=== PATIENT | male | born 1965 | race Caucasian/White ===

== ENCOUNTER 2019-09-04 12:36 | Emergency (ER) | payer OTHER, SELFPAY ==
--- NOTE | 2019-09-04 12:23 | ECG_ITS ---
APPROVED REPORT Exam: Resting ECG HR:70 bpm ECG Measurements Heart Rate 70 AXES ME 132 P 48 QRSd 70 QRS 72 QT 398 T 61 QTc 429 <Conclusion> Normal sinus rhythm Normal ECG Electronically signed by : Chris Long, 09/06/2019 06:50:38
[2019-09-04 12:37] VITALS: BP 138/83; PULSE 76; RESP 20; TEMP 36.7; O2SAT 98; BMI 33.7
--- NOTE | 2019-09-04 12:43 | XR_ITS ---
PROCEDURE: XR CHEST 2V CLINICAL HISTORY: SYNCOPE Tobacco use COMPARISON: No exams were available for comparison FINDINGS: The cardiomediastinal silhouette and pulmonary vascularity are within normal limits. The lungs are clear without infiltrates, suspicious nodules, or pleural effusions. No acute bony abnormalities. IMPRESSION: No acute findings. Dictated by: Chinedu Burris MD 09/04/2019 15:46 Electronically signed by Chinedu Burris MD in [facility] 09/04/2019 15:46
--- NOTE | 2019-09-04 12:43 | CT_ITS ---
PROCEDURE: CT HEAD/BRAIN WO CON CLINICAL INDICATION: SYNCOPE Syncope COMPARISON: No exams were available for comparison TECHNIQUE: Axial images obtained. All CT scans at the facility use one or more dose reduction, viz: automated exposure control, ma/kV adjustment per patient size (including targeted exams where dose is matched to indication, i.e. head), or iterative reconstruction technique. FINDINGS: No midline shift, mass effect, intracranial hemorrhage, hydrocephalus, or extra-axial fluid collection is evident. There is some soft tissue swelling in the left parietal region of the skull near the vertex. No obvious fracture. The calvarium has an unremarkable appearance. No mastoid effusion. No sinus air-fluid level. IMPRESSION: 1. No acute intracranial findings. 2. Soft tissue swelling in the left parietal area of the vertex which may be related to contusion. Please correlate with clinical parameters Dictated by: Chinedu Burris MD 09/04/2019 13:13 Electronically signed by Chinedu Burris MD in [facility] 09/04/2019 13:13
[2019-09-04 12:45] VITALS: BP 129/77; BP 138/83; BP 146/92; PULSE 70; PULSE 76; PULSE 80
--- NOTE | 2019-09-04 12:48 | [facility].EDGENADL ---
ED Disposition Clinical Impression: Syncope and collapse Disposition: Home, Self-Care Condition on Discharge: Good Instructions: DI for Syncope in Adults (Fainting) Additional Instructions: Home to rest today. Drink plenty of fluids. Return to the emergency room if feeling of faintness or if actual fainting occurs. Return if any new symptoms such as chest pain or shortness of breath. Follow-up with your primary care provider next week, call for appointment. Referrals: Provider,Referral, [Primary Care Provider] - - Critical Care Critical Care Time: No Attestation: On , the high probability of a clinically significant, sudden or life threatening deterioration of the following system(s) required my full and direct attention, intervention and personal management. The time I documented below is in addition to time spent performing reported procedures but includes the following listed in this critical care notation. Medical Decision Making - Antonio Inquiry Pt receiving controlled substance: No Vital Signs: 09/04/19 12:37 09/04/19 12:45 Temperature 98.1 F Temperature Source Oral Pulse Rate [Orthostatic Lying] 76 Pulse Rate [Orthostatic Sitting] 70 Pulse Rate [Orthostatic Standing] 80 Pulse Rate [Right] 76 Respiratory Rate 20 Blood Pressure [Orthostatic Lying Right Arm] 138/83 Blood Pressure [Orthostatic Sitting] 129/77 Blood Pressure [Orthostatic Standing] 146/92 H Blood Pressure [Right Arm] 138/83 Blood Pressure Mean [Right Arm] 101 02 Sat by Pulse Oximetry 98 - Lab Data Lab Results 09/04/19 12:40: WBC 10.9 H, RBC 4.98, Hgb 15.1, Hct 45.9, MCV 92.0, MCH 30.4, MCHC 33.0, RDW 14.5, Plt Count 317, MPV 8.7, Neut % (Auto) 60.5, Lymph % (Auto) 29.7, [place] % (Auto) 4.6, Eos % (Auto) 4.3, Baso % (Auto) 0.9, Neut # (Auto) 6.6, Lymph # (Auto) 3.2, [place] # (Auto) 0.5, Eos # (Auto) 0.5 H, Baso # (Auto) 0.1 09/04/19 12:40: Sodium 136, Potassium 4.0, Chloride 101, Carbon Dioxide 30, Anion Gap 9.0, BUN 15, Creatinine 1.00, Estimated Creat Clear 123, Estimated GFR 78, Est GFR ( Amer) 95, Glucose 112 H, Calcium 9.5, Total Bilirubin 0.6, AST 25, ALT 22, Alkaline Phosphatase 108, Troponin I < 0.01, Total Protein 7.8, Albumin 4.4, Globulin 3.4 H, Albumin/Globulin Ratio 1.3 09/04/19 12:40: Plasma/Serum Alcohol < 10 09/04/19 13:15: Urine Color Yellow, Urine Appearance Clear, Urine pH 6.0, Ur Specific [place] 1.025, Urine Protein Negative, Urine Glucose (UA) Negative, Urine Ketones Negative, Urine Blood Negative, Urine Nitrate Negative, Urine Bilirubin Negative, Urine Urobilinogen 0.2, Ur Leukocyte Esterase Negative, Urine WBC 3-5, Ur Squamous Epith Cells None, Urine Bacteria Trace 09/04/19 13:15: Urine Opiates Screen Negative, Urine Methadone Screen Negative, Ur Barbituates Screen Negative, Ur Phencyclidine Scrn Negative, Ur Amphetamines Screen Negative, U Benzodiazepines Scrn Negative, Urine Cocaine Screen Negative, U Marijuana (THC) Screen Negative Result diagrams: 09/04/19 12:40 09/04/19 12:40 Orders (Tests/Meds): ED MEDICATIONS Discontinued Medications Generic Name Dose Route Start Last Admin Trade Name Freq PRN Reason Stop Dose Admin Sodium Chloride 1,000 mls @ 999 mls/hr 09/04/19 12:45 09/04/19 12:48 Sod Chlor 0.9% 1000ml Bag IV 09/04/19 13:45 999 mls/hr .Q1H1M SAM Administration ORDERS Category Date Time Status XR chest 2V Stat Exams 09/04/19 12:43 Taken Troponin I Q3H Lab 09/04/19 15:45 Ordered Troponin I Q3H Lab 09/04/19 18:45 Ordered ECG Request by /Nse Stat Y 09/04/19 12:43 Ordered - Radiology Data #1 Image(s): Chest Image Reviewed: Yes I reviewed the patient's radiology image Preliminary Findings: Normal/NAD - CT Data CT Scan: Head Time Received: 13:[address] Reviewed: Yes: I have viewed the radiologist's interpretation Findings Narrative: PROCEDURE: CT HEAD/BRAIN WO CON CLINICAL INDICATION: SYNCOPE Syncope COMPARISON: No exams were
[2019-09-04 12:58] LABS: Basophils # 0.1 K/mm3 (0-0.2); Basophils % 0.9 % (0.1-2.0); Eosinophils # 0.5 K/mm3 (0.0-0.4); Eosinophils % 4.3 % (0.1-12.0); Hematocrit 45.9 % (42.0-52.0); Hemoglobin 15.1 g/dL (14.1-18.0); Lymphocytes # 3.2 K/mm3 (0.7-4.5); Lymphocytes % 29.7 % (10-50); Mean Corpuscular Hemoglobin 30.4 pg (27.0-31.2); Mean Platelet Volume 8.7 fl (7.4-10.4); Monocytes # 0.5 K/mm3 (0.1-1.0); Monocytes % 4.6 % (1.7-9.3); Neutrophils # 6.6 K/mm3 (1.8-7.8); Neutrophils % 60.5 % (37.0-80.0); Platelet Count 317 K/mm3 (142-424); Red Blood Count 4.98 M/mm3 (4.60-6.20); Red Cell Distribution Width 14.5 % (11.5-17.5); White Blood Count 10.9 K/mm3 (4.8-10.8)
[2019-09-04 13:04] LABS: Chloride 101 mmol/L (98-107); Sodium 136 mmol/L (136-145)
[2019-09-04 13:06] LABS: Blood Urea Nitrogen 15 mg/dl (9-20); Creatinine Clearance Estimated 123 mL/min (50-200); Estimated Glomerular Filt Rate 78 ml/min (>60); GFR (African American) 95 ML/MIN (>60)
[2019-09-04 13:07] LABS: Alanine Aminotransferase 22 U/L (12-78); Albumin Level 4.4 g/dl (3.5-5.0); Albumin/Globulin Ratio 1.3 (1.1-1.8); Alkaline Phosphatase 108 U/L (38-126); Aspartate Amino Transferase 25 U/L (17-59); Bilirubin,Total 0.6 mg/dl (0.2-1.3); Calcium 9.5 mg/dl (8.4-10.2); Carbon Dioxide 30 mmol/L (22.0-30.0); Ethyl Alcohol < 10 mg/dl (0-10); Globulin 3.4 g/dL (1.3-3.2); Glucose 112 mg/dl (74-100); Total Protein,Serum 7.8 g/dl (6.3-8.2)
[2019-09-04 13:20] LABS: Troponin I < 0.01 ng/ml (0.00-0.034)
[2019-09-04 13:21] LABS: Appearance,Urine CLEAR (Clear); Bilirubin,Urine Negative (Negative); Blood, Urine Negative (Negative); Color,Urine YELLOW (Yellow); Glucose,Urine (UA) Negative (Negative); Ketones,Urine Negative (Negative); Leukocyte Esterase,Urine Negative (Negative); Microscopic, Urine URINE MICROSCOPIC (MICROSCOPIC); Nitrate,Urine Negative (Negative); Protein,Urine Negative (Negative); Specific Gravity, Urine 1.025 (1.005-1.030); Urobilinogen,Urine 0.2 EU/dl (0.2)
[2019-09-04 13:27] LABS: Bacteria,Urine Trace /lpf
[2019-09-04 13:33] LABS: Barbiturates Screen,Urine Negative ng/ml (<200); Benzodiazepines Screen,Urine Negative ng/ml (<200)
[2019-09-04 13:34] LABS: Amphetamine/Metha Screen,Urine Negative ng/ml (<1000)
[2019-09-04 13:35] LABS: Cannabinoid Screen,Urine Negative ng/ml (<50); Cocaine Screen,Urine Negative ng/ml (<300)
[2019-09-04 13:36] LABS: Methadone Screen,Urine Negative ng/ml (<300); Opiate Screen,Urine Negative ng/ml (<300)
[2019-09-04 13:37] LABS: Phencyclidine Screen,Urine Negative ng/ml (<25)
[2019-09-04 14:18] VITALS: BP 129/77; PULSE 76; RESP 20; TEMP 36.7; O2SAT 98
== END 2019-09-04 14:20 | disposition home or self-care (01) ==
PROVIDERS: Emergency Provider Emergency Medicine
DX: R55 Syncope and collapse (principal); S00.03XA Contusion of scalp, initial encounter; F17.210 Nicotine dependence, cigarettes, uncomplicated
CPT/HCPCS: 70450; 71046; 80053; 80305; 81001; 84484; 85025; 93005; 96365; 99283; 99284

== ENCOUNTER → 2019-09-15 10:01 | Outpatient (CLI) | payer OTHER, SELFPAY ==
--- NOTE | 2019-09-15 | CA_ITS ---
APPROVED REPORT EXAM: Comprehensive 2D, Doppler, and color-flow Echocardiogram Brush Cleaner: Mary Grace Zepeda CRT Ht: 5 ft 8 in Wt: 222lbs BSA: 2.14 BP: 122/72 mmHg Indications: smoker, syncope 2D Dimensions LVOT 1.89 cm (M/F) 1.5-2.5 M-Mode Dimensions RVDd 3.35 cm (0.9-2.6) LVDd 4.48 cm (3.5-5.7) LVDs 2.82 cm (3.5-5.7) IVSd 1.13 cm (0.6-1.1) PWd 0.53 cm (0.6-1.1) EF (Teich) 67.10% FS 37.10% EDV (Teich) 91.50 mL ESV (Teich) 30.10 mL LV Diastology E/A Ratio 1.18 Mitral Valve MV A Velocity 68.00 (40-130 cm/s) Left Ventricle Left atrium is normal size, left ventricle is normal size, there is no concentric left ventricular hypertrophy, visually estimated ejection fraction 55% with no regional wall motion abnormality, diastolic parameters are inconclusive. Right Ventricle Right atrium and right ventricular mildly enlarged with normal contractility. Aortic Valve Aortic valve is minimally thickened and fibrosed, there is no aortic stenosis or aortic insufficiency. Mitral Valve Mitral valve grossly normal, there is trace mitral regurgitation. Tricuspid Valve Tricuspid valve is grossly normal, there is trace tricuspid regurgitation. Pulmonic Valve Pulmonic valve is poorly visualized. Great Vessels Aortic root is normal size. Conclusion 1. Normal left ventricular size, preserved left ventricular systolic function, visually estimated ejection fraction 55% with no regional wall motion abnormality, diastolic parameters are inconclusive. 2. Mildly enlarged right ventricle with normal contractility. 3. Trace mitral and tricuspid regurgitation 4. No significant pericardial effusion noted. Electronically signed by : Robert Stearns, 09/15/2019 19:27:07
--- NOTE | 2019-09-15 | CA_ITS ---
APPROVED REPORT Medical Assistant Dermatology: CT Laterality: Bilateral Indications: Syncope Doppler Spectral Velocity Analysis ECA (R) 103.10/12.80 cm/s ECA (L) 80.30/14.80 cm/s dICA (R) 121.90/50.30 cm/s dICA (L) 97.30/38.50 cm/s Jean Marie (R) 80.30/32.10 cm/s Jean Marie (L) 101.60/43.80 cm/s pICA (R) 68.10/29.50 cm/s pICA (L) 110.10/36.40 cm/s dCCA (R) 83.10/21.40 cm/s dCCA (L) 133.70/27.80 cm/s pCCA (R) 115.50/20.30 cm/s pCCA (L) 132.60/23.50 cm/s Vert (R) 44.90/10.90 cm/s Vert (L) 35.60/9.20 cm/s ICA/CCA 1.50 ICA/CCA 0.80 Conclusion Duplex evaluation demonstrates stenosis of the right proximal internal carotid artery in the range of 20-49% with PSV <140 cm/sec, EDV <100 cm/sec, and IC/CC Ratio <4.0. Duplex evaluation demonstrates stenosis of the left proximal internal carotid artery in the range of 20-49% with PSV <140 cm/sec, EDV <100 cm/sec, and IC/CC Ratio <4.0. Duplex evaluation demonstrates antegrade flow of the bilateral Vertebral Arteries. Electronically signed by : Chinedu Burris MD 09/15/2019 16:20:24
== END ==
PROVIDERS: PCP Nurse Practitioner Family; Visit Provider Nurse Practitioner Family
DX: R55 Syncope and collapse (principal)
CPT/HCPCS: 93306; 93880

== ENCOUNTER → 2019-09-30 06:53 | Outpatient (CLI) | payer OTHER, SELFPAY ==
--- NOTE | 2019-09-30 | CA_ITS ---
APPROVED REPORT Exam: Exercise Treadmill Technologist: Kathryn James, Ht: 5 ft 8 in Wt: 222 lbs BSA: 2.14 m2 HR: 58 bpm BP: 146/75 mmHg Rhythm: SINUS RHYTHM Medical History Medical History: HTN, Hyperlipidemia, Smoking Medications: Lisinopril,,,,, Atorvastatin,,,,, INHALER,,,,, Cardiac Risk Factors: HTN, HTN, FHX of CAD, Smoking Stress Test Details Test: Donte HR Resting HR: 74 bpm Max Heart Rate (APMHR): 168 bpm Max HR Achieved: 152 bpm Target HR (85% APMHR): 142 bpm % of APMHR: 90 Recovery HR: 110 bpm BP Resting BP: 146.0/75.0 mmHg Max BP: 173.0/79.0 mmHg Recovery BP: 150.0/75.0 mmHg ECG Resting ECG: SINUS RHYTHM Clinical Exercise duration: 1.5 min Highest Stage Achieved: Exercise capacity: 10.1 METs Stress ECG Conclusion DONTE PROTOCOL COMPLETED. EXERCISED 7:30 WITH METS= 10.1. MAX HEART RATE 152 BPM WHICH IS 90% OF PM FOR AGE. MAX BP 173/79. STOPPED DUE TO SOA. NO CHEST PAIN. POSITIVE FOR SOA AT PEAK EXERCISE. OCCASIONAL PVC. GREATER THAN 1.5MM ST DEPRESSION. IMAGES TO FOLLOW Test Summary REST . . . . . . . Standing REST . . . . . . . Sitting REST 03:53 0.0 0.0 74 . 146/ 75 . . Stage 1 01:00 10.0 1.7 99 . . . . Stage 1 02:00 10.0 1.7 111 . . . . Stage 1 03:00 10.0 1.7 109 . 152/ 80 . . Stage 2 01:00 12.0 2.5 117 . . . . Stage 2 02:00 12.0 2.5 125 . . . . Stage 2 03:00 12.0 2.5 128 . 162/ 80 . . Stage 3 . . . . . . . Cardiolite injected Stage 3 01:00 14.0 3.4 143 . . . . Stage 3 01:30 14.0 3.4 151 . . . Stop exercise at 07:30 RECOVERY 01:00 0.0 0.0 137 . . . . RECOVERY 02:00 0.0 0.0 115 . . . . RECOVERY 03:00 0.0 0.0 107 . 150/ 75 . . RECOVERY 04:00 0.0 0.0 101 . 173/ 79 . . RECOVERY 05:00 0.0 0.0 99 . 147/ 72 . . RECOVERY 05:12 0.0 0.0 96 . 147/ 72 . . Electronically signed by : Robert Stearns, 09/30/2019 19:20:57
--- NOTE | 2019-09-30 06:58 | NM_ITS ---
APPROVED REPORT Exam: Nuclear Stress Test Indication: HTN. HYPERLIPIDEMIA, TOB USE, FM HX, SYNCOPE Patient Location: Outpatient Stress Tech: Erin Erika [facility] Tech:Helen CidSHAW RT (R)(N)(M) Ht: 5 ft 8 in Wt: 222 lbs HR: 58 bpm BP: 146/75 mmHg BSA: 2.14 m2 BMI: 33.7 History: HTN. HYPERLIPIDEMIA, TOB USE, FM HX, SYNCOPE Procedure: Patient exercised on Donte protocol 7:30 minutes and sec, resting heart rate 58 bpm, resting blood pressure 146/75 mmHg, with exercise maximum heart rate achived was 152 bpm which is Greater than 85 % of the maximum predicted heart rate and blood pressure was 162/75 mmHg. Test was stopped due to SOB. Patient has good exercise capacity, achieved 10.1 METs of workload on treadmill, the blood pressure response to exercise was Adequate. Electrocardiogram Resting electrocardiogram showed sinus rhythm nonspecific ST-T changes, with exercise there is additional millimeter ST segment depression noted from the baseline EKG. The EKG portion of the exercise Myoview is nondiagnostic due to baseline abnormal EKG. Cardiac Stress and Resting SPECT Images: Cardiac Stress and Resting SPECT images were obtained using technetium 99m Myoview 31.7 mCi stress and 10.35 mCi at rest. Gated SPECT with analysis of segmental wall motion and calculation of ejection fraction also done. Cardiac stress and resting SPECT images show uniform myocardial activity without segmental perfusion abnormality, computer derived ejection fraction is 63% with no regional wall motion abnormality, right ventricle is normal size and contractility. Conclusion: 1. The EKG portion of the exercise Myoview is nondiagnostic due to baseline abnormal EKG, patient has good exercise capacity achieved 10.1 mets of workload on treadmill, the blood pressure response to exercise was adequate, there was no exercise-induced chest discomfort. 2. No scintigraphic evidence of reversible ischemia seen, computer derived ejection fraction is 63% with no regional wall motion abnormality, right ventricle is normal size and contractility. 3. Normal exercise Myoview study. Electronically signed by : Robert Stearns, 09/30/2019 19:23:37
== END ==
PROVIDERS: PCP Nurse Practitioner Family; Visit Provider Nurse Practitioner Family
DX: R55 Syncope and collapse (principal)
CPT/HCPCS: 78452; 93017; A9502